=== PATIENT | male | born 1960 | race Caucasian/White ===

== ENCOUNTER → 2016-09-29 | Outpatient (CLI) | payer OTHER ==
[~2016-09-29] MED LIST: ALDACTONE 25MG25 MG PO; ASPIRIN 325MG325 MG NG; BUMEX 1MG TABLET1 MG PO; CYMBALTA60 MG PO; EFFER-K 10 MEQ10 MEQ PO; FISH OIL 1,0001 EAC5 PO; FLOMAX 0.4 MG0.4 MG PO; MULTIVITAMINS1 EAC1 PO; NEURONTIN 400400 MG PO; NOVOLOG 10100 UNITS2 INJ; ULTRAM50 MG PO; VITAMIN B12-FO1 EACH PO; ZOCOR20 MG PO
== END ==
LOC: KOH-I 10:55
DX: S42.401A Unspecified fracture of lower end of right humerus, initial encounter for closed fracture (principal)
CPT/HCPCS: 73200